=== PATIENT | male | born 1960 | race Caucasian/White ===

== ENCOUNTER 2018-07-24 08:36 | Day surgery (SDC) | payer BC ==
[~2018-07-24] VITALS: Ht 188 cm; Wt 84.9 kg
[2018-07-24] MEDS ORDERED: LACTATED RINGERS 1,000 ML IV SCH (09:18)
[2018-07-24] MEDS ORDERED: DICL75TA2 PO (09:20)
[2018-07-24] MEDS ORDERED: ACET325T14 PO (09:20)
[2018-07-24] MEDS ORDERED: MULT-658 PO (09:21)
[2018-07-24] MEDS ORDERED: KRIL1CAP22 PO (09:21)
[2018-07-24 09:30] VITALS: BP 106/68
[2018-07-24] MEDS ORDERED: FENTANYL PF 250 MCG/5ML ONE (09:46)
[2018-07-24] MEDS ORDERED: MIDAZOLAM 1 MG/ML, 2ML ONE (09:46)
[2018-07-24] MEDS ORDERED: PROPOFOL 10 MG/ML, 20ML ONE (09:50)
[2018-07-24] MEDS ORDERED: GLYCOPYRROLATE 0.2MG/1ML, 5ML ONE (09:50)
[2018-07-24] MEDS ORDERED: ROCURONIUM 10MG/ML,5ML ONE (09:50)
[2018-07-24] MEDS ORDERED: ROPIvacaine/PF 0.5%, 30 ML ONE (09:50)
[2018-07-24] MEDS ORDERED: NEOSTIGMINE 1 MG/ML, 10ML ONE (09:50)
[2018-07-24] MEDS ORDERED: CEFAZOLIN 1,000 MG ONE (09:50)
[2018-07-24] MEDS ORDERED: BUPIVACAINE/PF 0.25% ONE (11:01)
[2018-07-24] MEDS ORDERED: EPINEPHRINE 1 MG/ML, 1ML ONE (11:01)
[2018-07-24] MEDS ORDERED: PROMETHAZINE 12.5 MG SUPP PR PRN (11:30)
[2018-07-24] MEDS ORDERED: OXYcodone 5 MG/5 ML ORAL.SOL UDC PO PRN (11:30)
[2018-07-24] MEDS ORDERED: ONDANSETRON ODT 8 MG PO PRN (11:30)
[2018-07-24] MEDS ORDERED: MORPHINE SULFATE 4 MG/ML, 1ML IVPush PRN (11:30)
[2018-07-24] MEDS ORDERED: ACETAMINOPHEN 325 MG TABLET PO PRN (11:30)
[2018-07-24] MEDS ORDERED: PROMETHAZINE 25 MG SUPP PR PRN (11:30)
[2018-07-24] MEDS ORDERED: LABETALOL 5MG/ML, 20ML IV PRN (11:30)
[2018-07-24] MEDS ORDERED: ONDANSETRON 2MG/ML, 2ML IV PRN (11:30)
[2018-07-24] MEDS ORDERED: FENTANYL PF 100 MCG/2ML IV PRN (11:30)
[2018-07-24] MEDS ORDERED: HYDROmorphone 2 MG/ML, 1ML IVPush PRN (11:30)
[2018-07-24] MEDS ORDERED: hydrALAzine 20 MG/ML, 1ML IV PRN (11:30)
[2018-07-24] MEDS ORDERED: PROMETHAZINE 25 MG/ML, 1ML IM PRN ×2 (11:30)
[2018-07-24] MEDS ORDERED: PROMETHAZINE 25 MG/ML, 1ML IV PRN (11:30)
[2018-07-24] MEDS ORDERED: MEPERIDINE/PF 50 MG/ML ONE (13:20)
[2018-07-24] MEDS: MEPERIDINE/PF 25MG/0.5ML IVPush PRN ×2 (13:22→13:44)
== END 2018-07-24 16:05 | disposition home or self-care (01) ==
LOC: OUT 08:36
PROVIDERS: ATTEND Orthopaedic Surgery
DX: M75.121 Complete rotator cuff tear or rupture of right shoulder, not specified as traumatic (principal); M24.111 Other articular cartilage disorders, right shoulder; M66.321 Spontaneous rupture of flexor tendons, right upper arm; M19.011 Primary osteoarthritis, right shoulder; M75.41 Impingement syndrome of right shoulder; M94.211 Chondromalacia, right shoulder; Z88.8 Allergy status to other drugs, medicaments and biological substances
CPT/HCPCS: 29823; 29826; 29827; 64415; C1713; J0171; J0690; J2175; J2250; J2704; J2710; J2795; J3010; J3490; J7120